=== PATIENT | male | born 1940 | race African-American/Black ===

== ENCOUNTER 2019-05-25 14:19 | Emergency (ER) | payer MEDICARE, OTHER ==
[~2019-05-25] VITALS: Ht 182.9 cm; Wt 92.5 kg
[~2019-05-25 14:19] MED LIST: AMPI500C49 PO; METF1TAB PO
[2019-05-25 14:27] VITALS: BP 155/92
[2019-05-25 15:27] VITALS: BP 155/92
== END 2019-05-25 15:26 | disposition home or self-care (01) ==
LOC: MED 14:19
DX: N39.0 Urinary tract infection, site not specified (principal); E11.9 Type 2 diabetes mellitus without complications; I10 Essential (primary) hypertension
CPT/HCPCS: 81002; 87086; 99283

== ENCOUNTER 2020-09-21 21:36 | Emergency (ER) | payer MEDICARE ==
[~2020-09-21] VITALS: Ht 182.9 cm; Wt 83.9 kg
--- NOTE | 2020-09-21 21:39 | NUR ---
PT BROUGHT TO BED 9 VIA [facility]
[2020-09-21 21:41] VITALS: BP 84/59
--- NOTE | 2020-09-21 21:41 | NUR ---
Patient BIBA from home experiencing kidney pain, low back pain, and bilateral leg pain. 10/10 pain. patient felt normal throughout the day and suddenly became dizzy, shakey, and unable to stand. + n/v/d. patient c/o retention, blood in the urine x1 yr. patient has bilateral swelling +1 pitting edema. Patient has low BP trending in 80s/40s. AAOX4. PMH: chronic uti, possible bladder cancer, possible undx DM nka
[2020-09-21] MEDS ORDERED: NACL 0.9% 1,000 ML IV ONE (22:15)
[2020-09-21 22:48] LABS: BASOPHILS # (AUTO) 0.1 K/uL (0.00-0.22); BASOPHILS % (AUTO) 0.3 % (0.0-2.0); HEMATOCRIT 38.3 % (36-52); HEMOGLOBIN 12.4 g/dL (12.0-18.0); LYMPHOCYTES # (AUTO) 0.1 K/uL (2.0-11.5); LYMPHOCYTES % (AUTO) 0.7 % (20.5-51.1); MEAN CORPUSCULAR HEMOGLOBIN 31 pg (27-31); MEAN CORPUSCULAR HGB CONC 32 g/dL (33-37); MEAN CORPUSCULAR VOLUME 94.7 fL (80-94); MONOCYTES # (AUTO) 0.2 K/uL (0.8-1.0); NEUTROPHILS # (AUTO) 15.6 K/uL (1.8-7.7); PLATELET COUNT (AUTO) 176 K/uL (140-450); RED BLOOD CELL COUNT(AUTO) 4.04 MIL/uL (4.20-6.10); RED CELL DISTRIBUTION WIDTH 15.1 % (11.6-13.7); WHITE BLOOD COUNT (AUTO) 15.9 K/uL (4.8-10.8)
[2020-09-21 23:00] LABS: PROTHROMBIN TIME 11.2 secs (10.8-13.4)
[2020-09-21 23:02] LABS: ANION GAP 17.1 (8-16); ASPARTATE AMINOTRANSFERASE 25 U/L (15-37); CARBON DIOXIDE 20.4 mmol/L (21-32); CHLORIDE 113 mmol/L (98-107); CREATININE 2.4 mg/dL (0.6-1.3); GLUCOSE 112 mg/dL (74-106); POTASSIUM 3.5 mmol/L (3.5-5.1); SODIUM SERUM 147 mmol/L (136-145); TOTAL BILIRUBIN 0.9 mg/dL (0.0-1.0); UREA NITROGEN, BLOOD 58 mg/dL (7-18)
[2020-09-21 23:11] LABS: CREATINE KINASE MB 4.3 ng/mL (0-3.6)
[2020-09-21 23:16] LABS: D-DIMER > 5000 ng/ml (0-400)
--- NOTE | 2020-09-22 00:57 | NUR ---
ATTEMPTED TO CALL DAUGHTER VÍCTOR MARQUEZ. #[phone]
--- NOTE | 2020-09-22 01:11 | NUR ---
Note undone in EDM - 09/22/20 at 0124 by [email or web address] Patient MICHEL from home experiencing kidney pain, low back pain, and bilateral leg pain. 10/10 pain. patient felt normal throughout the day and suddenly became dizzy, shakey, and unable to stand. + n/v/d. patient c/o retention, blood in the urine x1 yr. patient has bilateral swelling +1 pitting edema. Patient has low BP trending in 80s/40s. AAOX4. PMH: chronic uti, possible bladder cancer, possible undx DM nka
--- NOTE | 2020-09-22 04:19 | NUR ---
# 16 FR cudet Rene catheter with 10 ml utilizing sterile technique. Immediate return of 225 ml red, & hazy urine noted. Bedside drainage bag placed below level of bladder. Urine sample collected and sent to lab. Pt tolerated procedure well.
--- NOTE | 2020-09-22 04:39 | NUR ---
urine collected and collected robert swab and sent to lab, received by wilner stevens
--- NOTE | 2020-09-22 04:44 | NUR ---
called daughter to note that patient will be admitted and updated on patient status.
--- NOTE | 2020-09-22 04:48 | NUR ---
Daughter of patient Shelly Bradford # [phone] Sister of patient Braynt Shazia Duran #[phone]
[2020-09-22 04:50] LABS: APPEARANCE,URINE HAZY (CLEAR); BILIRUBIN,URINE 1+ (NEGATIVE); BLOOD, URINE 3+ (NEGATIVE); COLOR,URINE RED (YELLOW); LEUKOCYTE ESTERASE ,URINE 2+ (NEGATIVE); NITRITE, URINE NEGATIVE (NEGATIVE); PH,URINE 8.5 (5.0-9.0); UGLUCOSE NEGATIVE (NEGATIVE)
[2020-09-22] MEDS ORDERED: cefTRIAXone 1,000 MG VIAL ONE (04:55)
[2020-09-22 05:15] LABS: RBC,URINE TOO NUMEROUS TO COUN /HPF (0-5); WBC,URINE 0-5 /HPF (0-5)
--- NOTE | 2020-09-22 05:23 | NUR ---
called sonia for med reconciliation-- no answer
--- NOTE | 2020-09-22 05:53 | NUR ---
sonia called for med reconciliation
[2020-09-22] MEDS ORDERED: FURO-572 PO (07:03)
[2020-09-22] MEDS ORDERED: GLIM2TAB PO (07:03)
[2020-09-22] MEDS ORDERED: CIPR250T3 PO (07:03)
--- NOTE | 2020-09-22 07:22 | NUR ---
Received report from JONY Santana. Transfer of care at this time.
--- NOTE | 2020-09-22 07:22 | NUR ---
REPORT RECIEVED FROM JONY RENNER. TRANSFER OF CARE RECEIVED
--- NOTE | 2020-09-22 08:13 | NUR ---
Obtained consent from pt for pending transfer to [facility] to us 30min.
--- NOTE | 2020-09-22 08:25 | NUR ---
Report called to JONY Dumont at [facility]. ETA [phone] for transfer of pt
--- NOTE | 2020-09-22 08:26 | NUR ---
Pt had 1 episode of emesis, provided emesis bag.
--- NOTE | 2020-09-22 08:30 | NUR ---
Son currently bedside with pt and pt provided ice chips. Pt currently denied zofran. Will continue to monitor
[2020-09-22 09:28] VITALS: BP 114/66
--- NOTE | 2020-09-22 09:30 | NUR ---
Patient to be transferred to [facility]. Is being transferred due to CONTINUATION OF CARE. Receiving facility has accepting physician and available space. ER physician has signed transfer form. Patient or responsible democrat has agreed to transfer and signed form. Patient belongings inventoried and will be sent with patient. Copy of nursing notes, lab reports, EKG, Physicians Orders and X-rays to be sent with patient. Report called to JONY TEIXEIRA at receiving facility. [facility] ambulance service has been called for transfer. ETA is 30MINUTES.
== END 2020-09-22 09:30 | disposition short-term general hospital (02) ==
LOC: MED 21:36
DX: R33.9 Retention of urine, unspecified (principal); E11.9 Type 2 diabetes mellitus without complications; I10 Essential (primary) hypertension; N17.9 Acute kidney failure, unspecified; N39.0 Urinary tract infection, site not specified; Z20.828 Contact with and (suspected) exposure to other viral communicable diseases; Z79.84 Long term (current) use of oral hypoglycemic drugs
CPT/HCPCS: 36415; 51702; 71045; 74176; 80053; 81001; 82550; 82553; 82948; 84484; 85025; 85379; 85610; 85730; 87086; 87186; 87426; 93005; 96361; 96365; 99285; J0696; J7030

== ENCOUNTER 2021-01-12 17:18 | Emergency (ER) | payer MEDICARE ==
[~2021-01-12] VITALS: Ht 182.9 cm; Wt 79.4 kg
[~2021-01-12 17:18] MED LIST changes: -AMPI500C49 PO; +CIPR250T3 PO; +FURO-572 PO; +GLIM2TAB PO; -METF1TAB PO
[2021-01-12 17:23] VITALS: BP 125/86
[2021-01-12 19:51] LABS: APPEARANCE,URINE BLOODY (CLEAR); BILIRUBIN,URINE NEGATIVE (NEGATIVE); BLOOD, URINE 1+ (NEGATIVE); COLOR,URINE RED (YELLOW); LEUKOCYTE ESTERASE ,URINE 1+ (NEGATIVE); NITRITE, URINE NEGATIVE (NEGATIVE); UGLUCOSE NEGATIVE (NEGATIVE)
[2021-01-12 19:52] LABS: RBC,URINE TOO NUMEROUS TO COUN /HPF (0-5)
[2021-01-12 20:18] LABS: PROTHROMBIN TIME 10.4 secs (10.8-13.4)
[2021-01-12 20:20] LABS: ALBUMIN 3.1 g/dL (3.4-5.0); ANION GAP 13.5 (8-16); ASPARTATE AMINOTRANSFERASE 16 U/L (15-37); CARBON DIOXIDE 25.5 mmol/L (21-32); CHLORIDE 109 mmol/L (98-107); CREATININE 1.3 mg/dL (0.6-1.3); GLUCOSE 115 mg/dL (74-106); SODIUM SERUM 144 mmol/L (136-145); TOTAL BILIRUBIN 0.8 mg/dL (0.0-1.0); UREA NITROGEN, BLOOD 28 mg/dL (7-18)
[2021-01-12] MEDS ORDERED: ACETAMINOPHEN 325 MG TAB PO ONE (20:20)
[2021-01-12] MEDS ORDERED: NACL 0.9% 1,000 ML IV ONE (20:30)
[2021-01-12] MEDS ORDERED: VANCOMYCIN 1,000 MG in DEXTROSE 5% 250 ML IV ONE (20:35)
[2021-01-12] MEDS ORDERED: CEFEPIME 1,000 MG in DEXTROSE 5% 50 ML IV ONE (20:35)
[2021-01-12] MEDS ORDERED: CEFEPIME 1,000 MG VIAL ONE (20:41)
[2021-01-12] MEDS ORDERED: VANCOMYCIN 1,000 MG VIAL ONE (20:41)
[2021-01-12 21:07] LABS: BASOPHILS % (AUTO) 0.1 % (0.0-2.0); EOSINOPHILS % (AUTO) 0.1 % (0.0-4.0); HEMATOCRIT 35.1 % (36-52); HEMOGLOBIN 11.6 g/dL (12.0-18.0); LYMPHOCYTES # (AUTO) 0.3 K/uL (2.0-11.5); LYMPHOCYTES % (AUTO) 1.5 % (20.5-51.1); MEAN CORPUSCULAR HEMOGLOBIN 30 pg (27-31); MEAN CORPUSCULAR HGB CONC 33 g/dL (33-37); MEAN CORPUSCULAR VOLUME 91.4 fL (80-94); MONOCYTES # (AUTO) 0.3 K/uL (0.8-1.0); MONOCYTES % (AUTO) 1.4 % (1.7-9.3); NEUTROPHILS # (AUTO) 22.4 K/uL (1.8-7.7); NEUTROPHILS % (AUTO) 96.9 % (42.2-75.2); PLATELET COUNT (AUTO) 211 K/uL (140-450); RED BLOOD CELL COUNT(AUTO) 3.84 MIL/uL (4.20-6.10); RED CELL DISTRIBUTION WIDTH 14.9 % (11.6-13.7); WHITE BLOOD COUNT (AUTO) 23.1 K/uL (4.8-10.8)
[2021-01-13 00:14] VITALS: BP 97/61
== END 2021-01-13 00:18 | disposition short-term general hospital (02) ==
LOC: MED 17:18
DX: A41.9 Sepsis, unspecified organism (principal); N39.0 Urinary tract infection, site not specified; R31.9 Hematuria, unspecified; Z20.822 Contact with and (suspected) exposure to COVID-19; R53.81 Other malaise; E11.9 Type 2 diabetes mellitus without complications; I10 Essential (primary) hypertension; Z79.899 Other long term (current) drug therapy
CPT/HCPCS: 36415; 51702; 71045; 74176; 80053; 81001; 83605; 83880; 84484; 85025; 85610; 85730; 87040; 87186; 87426; 93005; 96365; 96366; 96368; 99291; J0692; J3370; J7030; Q0092

== ENCOUNTER 2021-01-29 03:30 | Emergency (ER) | payer MEDICARE ==
[~2021-01-29] VITALS: Ht 182.9 cm; Wt 79.4 kg
--- NOTE | 2021-01-29 03:31 | NUR ---
PT MICHEL TO ER BED 11 [facility]IA [facility]
[2021-01-29 03:42] VITALS: BP 138/91
--- NOTE | 2021-01-29 03:53 | NUR ---
BIBA C/O SUPRAPUBIC PAIN R/T URINATION HX UTI. PREVIOUSLY TREATED HERE FOR THE SAME. C/O URGENCY, HESITANCY, DRIBBLING AND FREQUENCY. HAS NO OTHER C/O.
[2021-01-29 05:17] LABS: CARBON DIOXIDE 27.4 mmol/L (21-32); CHLORIDE 106 mmol/L (98-107); CREATININE 1.5 mg/dL (0.6-1.3); GLUCOSE 121 mg/dL (74-106); POTASSIUM 4.4 mmol/L (3.5-5.1); SODIUM SERUM 141 mmol/L (136-145); UREA NITROGEN, BLOOD 24 mg/dL (7-18)
[2021-01-29] MEDS ORDERED: AMOX1TAB8 PO (05:55)
[2021-01-29 06:01] LABS: BASOPHILS % (AUTO) 0.2 % (0.0-2.0); HEMATOCRIT 38.6 % (36-52); HEMOGLOBIN 12.6 g/dL (12.0-18.0); LYMPHOCYTES # (AUTO) 0.3 K/uL (2.0-11.5); LYMPHOCYTES % (AUTO) 2.7 % (20.5-51.1); MEAN CORPUSCULAR HEMOGLOBIN 30 pg (27-31); MEAN CORPUSCULAR HGB CONC 33 g/dL (33-37); MEAN CORPUSCULAR VOLUME 92.7 fL (80-94); MONOCYTES # (AUTO) 0.8 K/uL (0.8-1.0); MONOCYTES % (AUTO) 6.2 % (1.7-9.3); NEUTROPHILS # (AUTO) 11.8 K/uL (1.8-7.7); NEUTROPHILS % (AUTO) 90.9 % (42.2-75.2); PLATELET COUNT (AUTO) 285 K/uL (140-450); RED BLOOD CELL COUNT(AUTO) 4.16 MIL/uL (4.20-6.10)
[2021-01-29] MEDS ORDERED: ACET500P13 PO (06:19)
[2021-01-29 06:44] VITALS: BP 150/88
[2021-01-29 12:02] LABS: APPEARANCE,URINE CLOUDY (CLEAR); BILIRUBIN,URINE NEGATIVE (NEGATIVE); COLOR,URINE YELLOW (YELLOW); LEUKOCYTE ESTERASE ,URINE 2+ (NEGATIVE); NITRITE, URINE POSITIVE (NEGATIVE); UGLUCOSE NEGATIVE (NEGATIVE)
[2021-01-29 12:12] LABS: WBC,URINE 60-80 /HPF (0-5)
[2021-01-29 12:15] LABS: BLOOD, URINE 2+ (NEGATIVE); RBC,URINE 11-20 (MOD) /HPF (0-5)
== END 2021-01-29 06:20 | disposition home or self-care (01) ==
LOC: MED 03:30
DX: N39.0 Urinary tract infection, site not specified (principal); E11.9 Type 2 diabetes mellitus without complications; I10 Essential (primary) hypertension; Z79.899 Other long term (current) drug therapy; Z79.2 Long term (current) use of antibiotics
CPT/HCPCS: 36415; 80048; 81001; 83605; 85025; 87086; 99283

== ENCOUNTER 2021-07-11 07:17 | Emergency (ER) | payer MEDICARE ==
[~2021-07-11] VITALS: Ht 182.9 cm; Wt 90.9 kg
[~2021-07-11 07:17] MED LIST changes: +ACET500P13 PO; +AMOX1TAB8 PO
[2021-07-11 07:30] VITALS: BP 196/116
--- NOTE | 2021-07-11 07:35 | NUR ---
PATIENT AMBULATED TO BED 12.
--- NOTE | 2021-07-11 07:58 | NUR ---
Fay trejo in [facility] - 07/11/21 at 0758 by [email or web address] Patient being evaluated by DR JORDAN at bedside.
--- NOTE | 2021-07-11 07:58 | NUR ---
80Y MALE BIB SELF FOR NORMAN CATH REPLACEMENT. PER PATIENT HIS NORMAN BAG STARTED TO LEAK CAUSING FOR HIM TO CUT HIS NORMAN AND REMOVE IT. PT DENIES ANY PAIN AT THIS TIME AND IS REQUESTING FOR NEW NORMAN TO BE INSERTED. PT A&OX4. PMH: DM, HTN, PROSTATE PROBLAM NKA
--- NOTE | 2021-07-11 07:58 | NUR ---
DR. JORDAN BEDSIDE EVALUATING PT
--- NOTE | 2021-07-11 08:19 | NUR ---
Fay trejo in ED - 07/11/21 at 0819 by [email or web address] pt returned to bed [address] via w/c
--- NOTE | 2021-07-11 08:29 | NUR ---
# 16 FR Norman catheter with 10 ml utilizing sterile technique. Immediate return of 10 ml YELLOW urine noted. Bedside drainage bag placed below level of bladder. Urine sample collected and sent to lab. Pt tolerated procedure WELL. Addendum: 07/11/21 at 0835 by [email or web address] 860ML OF URINE DRAINED FROM NORMAN CATH BEDSIDE
[2021-07-11 08:38] VITALS: BP 196/116
--- NOTE | 2021-07-11 08:38 | NUR ---
Patient discharged with v/s stable. Written and verbal after care instructions given and explained. Patient verbalized understanding. Ambulatory with steady gait. All questions addressed prior to discharge. Advised to follow up with PMD.
== END 2021-07-11 08:38 | disposition home or self-care (01) ==
LOC: MED 07:17
DX: R10.30 Lower abdominal pain, unspecified (principal); E11.9 Type 2 diabetes mellitus without complications; I10 Essential (primary) hypertension; Z46.6 Encounter for fitting and adjustment of urinary device; Z79.899 Other long term (current) drug therapy
CPT/HCPCS: 51702; 81002; 99284

== ENCOUNTER 2021-09-04 16:57 | Emergency (ER) | payer MEDICARE, OTHER ==
[~2021-09-04] VITALS: Ht 182.9 cm; Wt 90.0 kg
[2021-09-04 17:06] VITALS: BP 205/165
--- NOTE | 2021-09-04 17:15 | NUR ---
PT AMB TO BED 7
--- NOTE | 2021-09-04 17:30 | NUR ---
80YO MALE PT C/O URINARY RETENTION XTODAY. PT STATES REMOVING HIS CHRONIC NORMAN CATHETER 8-9 HOURS AGO DUE TO PCP RECOMMENDATION OF FLOMAX . PT STATES ALTERNATIVE WAS DUE TO POSSIBLE PENDING PROSTATE SURGERY. PT REPORTS TIGHT 10/10 LOWER ABDOMINAL PAIN AND RETENTION SINCE REMOVAL. PT DENIES RELIEF FROM NEW RX AND HAS HAD "DRIBBING AND URGE". PT ABDOMEN FIRM, NON DISTENED OR TENDER TO TOUCH. DENIES N/V/D OR CHEST PAIN. PT AAOX4, RESPIRATIONS EVEN AND UNLABORED. HX: HTN NKA
--- NOTE | 2021-09-04 17:56 | NUR ---
# 16 FR Rene catheter with 10ml utilizing sterile technique. Immediate return of 700 ml dark yellow, sediment, cloudy, foul odor, urine noted. Drainage leg bag applied. Urine sample collected and sent to lab. Pt tolerated procedure well.
--- NOTE | 2021-09-04 18:10 | NUR ---
URINE SAMPLE COLLECTED. GIVEN TO LEAD INFORMAT[employer] DEVELOPER.
[2021-09-04] MEDS ORDERED: CEPH-588 PO (18:23)
--- NOTE | 2021-09-04 18:34 | NUR ---
Patient discharged with v/s stable. Written and verbal after care instructions FOR UTI , ACUTE URINARY RETENTION AND INDWELIING CATHETER CARE given and explained. Patient alert, oriented and verbalized understanding of instructions. Ambulatory with steady gait. All questions addressed prior to discharge. ID band removed. Patient advised to follow up with PMD. Rx of KEFLEX given. Opportunity to ask questions provided and answered.
--- NOTE | 2021-09-04 18:35 | NUR ---
Chart checked and completed. The patient's care was reviewed and supervised by Ragini Majano RN.
[2021-09-04 18:40] LABS: APPEARANCE,URINE SL CLOUDY (CLEAR); BILIRUBIN,URINE NEGATIVE (NEGATIVE); BLOOD, URINE 2+ (NEGATIVE); COLOR,URINE YELLOW (YELLOW); LEUKOCYTE ESTERASE ,URINE 3+ (NEGATIVE); NITRITE, URINE NEGATIVE (NEGATIVE); PH,URINE 8.5 (5.0-9.0); UGLUCOSE 1+ (NEGATIVE)
[2021-09-04 19:27] LABS: TRICHOMONAS,URINE None Seen /HPF (None Seen); TRIPLE PHOSPHATE CRYSTAL,UR 0-10 /HPF (None Seen); YEAST,URINE None Seen /HPF (None Seen)
== END 2021-09-04 18:34 | disposition home or self-care (01) ==
LOC: MED 16:57
DX: R33.9 Retention of urine, unspecified (principal); N39.0 Urinary tract infection, site not specified; E11.9 Type 2 diabetes mellitus without complications; I10 Essential (primary) hypertension; Z46.6 Encounter for fitting and adjustment of urinary device; Z79.899 Other long term (current) drug therapy
CPT/HCPCS: 51702; 81001; 87086; 99284

== ENCOUNTER 2022-02-19 06:21 | Emergency (ER) | payer MEDICARE, OTHER ==
[~2022-02-19] VITALS: Ht 182.9 cm; Wt 88.2 kg
[~2022-02-19 06:21] MED LIST changes: +CEPH-588 PO; +CIPR250T6 PO
[2022-02-19 06:25] VITALS: BP 180/99
--- NOTE | 2022-02-19 06:28 | NUR ---
TO LOBBY A/W BED AMBULATORY
--- NOTE | 2022-02-19 07:33 | NUR ---
Patient being evaluated by DR DOTY at [facility].
--- NOTE | 2022-02-19 07:56 | NUR ---
PATIENT AMBULATED TO BED 11.
[2022-02-19 08:41] LABS: BASOPHILS % (AUTO) 0.3 % (0.0-2.0); EOSINOPHILS % (AUTO) 0.4 % (0.0-4.0); HEMATOCRIT 40.2 % (36-52); HEMOGLOBIN 13.1 g/dL (12.0-18.0); LYMPHOCYTES # (AUTO) 1.2 K/uL (2.0-11.5); LYMPHOCYTES % (AUTO) 9.6 % (20.5-51.1); MEAN CORPUSCULAR HEMOGLOBIN 30 pg (27-31); MEAN CORPUSCULAR HGB CONC 33 g/dL (33-37); MEAN CORPUSCULAR VOLUME 92.2 fL (80-94); MONOCYTES # (AUTO) 0.6 K/uL (0.8-1.0); MONOCYTES % (AUTO) 5.2 % (1.7-9.3); NEUTROPHILS # (AUTO) 10.3 K/uL (1.8-7.7); NEUTROPHILS % (AUTO) 84.5 % (42.2-75.2); PLATELET COUNT (AUTO) 216 K/uL (140-450); RED BLOOD CELL COUNT(AUTO) 4.37 MIL/uL (4.20-6.10); RED CELL DISTRIBUTION WIDTH 15.1 % (11.6-13.7); WHITE BLOOD COUNT (AUTO) 12.2 K/uL (4.8-10.8)
--- NOTE | 2022-02-19 08:50 | NUR ---
ATTEMPTED TO FLUSH F/C. NO SUCCESS. PULLED OUT OLD F/C, INSERTED 17 SWISS F/C, 600ML OF URINE OUTPUT. PT STATES ABDO RELIEF.
[2022-02-19 08:52] LABS: ANION GAP 10.5 (8-16); CARBON DIOXIDE 28.3 mmol/L (21-32); CHLORIDE 108 mmol/L (98-107); CREATININE 1.3 mg/dL (0.6-1.3); GLUCOSE 87 mg/dL (74-106); POTASSIUM 3.8 mmol/L (3.5-5.1); SODIUM SERUM 143 mmol/L (136-145); UREA NITROGEN, BLOOD 23 mg/dL (7-18)
[2022-02-19 10:44] LABS: APPEARANCE,URINE CLOUDY (CLEAR); BILIRUBIN,URINE NEGATIVE (NEGATIVE); BLOOD, URINE 3+ (NEGATIVE); COLOR,URINE AMBER (YELLOW); LEUKOCYTE ESTERASE ,URINE 2+ (NEGATIVE); NITRITE, URINE NEGATIVE (NEGATIVE); PH,URINE 6.5 (5.0-9.0); UGLUCOSE NEGATIVE (NEGATIVE)
[2022-02-19 11:08] LABS: RBC,URINE 11-20 (MOD) /HPF (0-5); WBC,URINE 16-25 (MOD) /HPF (0-5)
[2022-02-19 11:09] LABS: OTHER CASTS, URINE None Seen /LPF (None Seen)
[2022-02-19] MEDS ORDERED: CEFP200T20 PO (11:16)
[2022-02-19 11:39] VITALS: BP 138/85
== END 2022-02-19 11:39 | disposition home or self-care (01) ==
LOC: MED 06:21
DX: N39.0 Urinary tract infection, site not specified (principal); K94.23 Gastrostomy malfunction; E11.9 Type 2 diabetes mellitus without complications; I10 Essential (primary) hypertension; Z79.4 Long term (current) use of insulin; Z79.899 Other long term (current) drug therapy
CPT/HCPCS: 36415; 51701; 80048; 81001; 85025; 87086; 99284